=== PATIENT | female | born 1955 | race Caucasian/White ===

== ENCOUNTER 2022-03-22 20:00 | Emergency (ER) | payer MEDICARE, BC ==
[2022-03-22] MEDS ORDERED: Sodium Chloride 0.9% 10 ML Syringe FLUSH PRN (20:40)
[2022-03-22] MEDS ORDERED: methylPREDNISolone Sodium Succinate 125 MG/2 ML SDV IVPUSH ONE (20:40)
[2022-03-22] MEDS ORDERED: Albuterol/Ipratropium 3.0-0.5 MG/3 ML Neb Soln NEB ONE (20:40)
[2022-03-22] MEDS ORDERED: LORazepam 0.5 MG Tab PO ONE (20:42)
== END 2022-03-22 22:48 | disposition home or self-care (01) ==
LOC: JP.ED 20:00
DX: J18.9 Pneumonia, unspecified organism (principal); J45.21 Mild intermittent asthma with (acute) exacerbation; E87.1 Hypo-osmolality and hyponatremia; Z20.822 Contact with and (suspected) exposure to COVID-19
CPT/HCPCS: 36415; 71046; 80048; 85025; 86140; 94640; 96374; 99282; 99285; A9270; J2930; J3490; U0002; J7620